=== PATIENT | female | born 2000 | race Hispanic/Latino ===

== ENCOUNTER 2021-07-25 08:59 | Outpatient (CLI) | payer OTHER, SELFPAY ==
[2021-07-25 09:48] LABS: Absolute Lymphocyte Count 2.81 X10^3/uL (0.83-4.51); Absolute Neutrophil Count 4.3 X10^3/uL (2.0-7.7); Basophil# 0.08 X10^3/uL; Eosinophil# 0.11 X10^3/uL; Eosinophils% 1.4 % (0-5); Hematocrit 40.6 % (37-47); Hemoglobin 13.4 g/dL (12.0-15.0); Lymphocyte # 2.81 X10^3/ul (0.83-4.51); Lymphocyte % 36.2 % (19-41); Mean Corpuscular Hgb 28.9 pg (27.0-32.0); Mean Corpuscular Volume 87.5 fL (81-99); Mean Platelet Vol. 10.6 fl (6.2-12.0); Monocyte# 0.45 X10^3/uL; Monocyte% 5.8 % (0-10); NRBC Flagged by Analyzer 0 % (0-5); Neutrophil % 55.3 % (47-70); Platelet Count 330 K/mm3 (150-450); RBC Distribution Width CV 13.2 % (11.6-14.6); RBC Distribution Width SD 42.3 fl (35.1-43.9); Red Blood Count 4.64 M/mm3 (4.2-5.4); White Blood Count 7.8 K/mm3 (4.4-11.0)
[2021-07-25 09:50] LABS: Erythrocyte Sedimentation Rate 10 mm/hr (0-30)
[2021-07-25 09:57] LABS: Hemoglobin A1c 5.4 % (3.8-5.6)
[2021-07-25 10:14] LABS: AST(SGOT) 13 U/L (15-37); Alanine Aminotransfer ALT/SGPT 16 U/L (13-56); Albumin, Serum 4.4 g/dL (3.2-5.0); Alkaline Phosphatase 57 U/L (45-117); Anion Gap 6 (5-15); BUN 12 mg/dL (7-18); BUN/Creat Ratio 15.1 RATIO (10-20); CRP < 2.90 mg/L (0.0-3.0); Calcium,Total 9.8 mg/dL (8.5-10.1); Chloride 107 mmol/L (98-107); Cholesterol 165 mg/dL (200); Creatinine, Serum 0.79 mg/dL (0.55-1.02); EST Glomerular Filtration Rate 95 mL/min (>60); Est Glom Filt Rate - Afr Amer 115 mL/min (>60); Globulin 4.3 g/dL (2.2-4.2); Glucose 85 mg/dL (74-106); High Density Lipoprotein 55 mg/dL; LDH 136 U/L (84-246); Potassium 4.1 mmol/L (3.5-5.1); Protein, Total 8.7 g/dL (6.4-8.2); Sodium Level 140 mmol/L (136-145); Triglycerides 70 mg/dL; Very Low Density Lipoprotein 14 mg/dL (5-40)
[2021-07-28 14:08] LABS: Anti-Centromere B Ab <0.2 AI (0.0-0.9); Anti-Chromatin <0.2 AI (0.0-0.9); Anti-Jo <0.2 AI (0.0-0.9); Anti-Scleroderma-70 AB <0.2 AI (0.0-0.9); RNP Ab 0.4 AI (0.0-0.9); SJOGREN'S Anti-SS-A test 0.2 AI (0.0-0.9); SJOGREN'S Anti-SS-B test 0.3 AI (0.0-0.9); Smith Ab <0.2 AI (0.0-0.9)
[2021-07-28 16:59] LABS: Anti-dsDNA Ab 2 IU/mL (0-9)
[2021-07-31 16:10] LABS: Immunoglobulin A 285 mg/dL (87-352); Immunoglobulin G 1225 mg/dL (586-1602); Immunoglobulin M 230 mg/dL (26-217)
[2021-07-31 17:40] LABS: Immunoglobulin E 42 IU/mL (6-495)
== END 2021-07-25 23:59 | disposition home or self-care (01) ==
LOC: LAB 09:08
PROVIDERS: PCP Nurse Practitioner Primary Care; Referring Provider Internal Medicine Gastroenterology; Visit Provider Internal Medicine Gastroenterology
DX: R19.7 Diarrhea, unspecified (principal)
CPT/HCPCS: 36415; 80053; 80061; 82784; 82785; 83036; 83615; 85025; 85652; 86140; 86225; 86235

== ENCOUNTER 2021-08-03 19:19 | Outpatient (CLI) | payer OTHER, SELFPAY ==
[2021-08-06 09:09] LABS: H. PYLORI STOOL AG Negative (Negative)
[2021-08-06 11:10] LABS: Giardia Lamblia, Stool EIA Negative (Negative)
[2021-08-08 16:45] LABS: Calprotectin, Stool 44 ug/g (0-120); Fats, Neutral Normal (.); Fats, Total Normal (.)
== END 2021-08-03 23:59 | disposition home or self-care (01) ==
LOC: LABSPEC 19:20
PROVIDERS: PCP Nurse Practitioner Primary Care; Referring Provider Internal Medicine Gastroenterology; Visit Provider Internal Medicine Gastroenterology
DX: R19.7 Diarrhea, unspecified (principal)
CPT/HCPCS: 82705; 83993; 87329; 87493; 87506

== ENCOUNTER 2021-08-08 14:59 | Outpatient (CLI) | payer OTHER, SELFPAY ==
--- NOTE | 2021-08-08 15:08 | CT_ITS ---
STUDY: CT ABDOMEN AND PELVIS WITH CONTRAST REASON FOR EXAM: Female, 21 years old. Diarrhea, family history cancer RADIATION DOSAGE (If Supplied By Facility): CTDIvol = ( 7.24 ) mGy, DLP = ( 257.92 ) mGycm TECHNIQUE: Transaxial images were obtained from the dome of the diaphragm to the symphysis pubis with oral contrast. Oral and amp; IV Readi-CAT and amp; 100mL Isovue-300 was administered. Sagittal and coronal images were reconstructed. Individualized dose optimization techniques were used for this CT. COMPARISON: None. FINDINGS: The visualized lung bases are unremarkable. The visualized portions of the heart are within normal limits. Normal liver. Normal gallbladder and extrahepatic biliary system. Normal spleen. Normal pancreas. Normal bilateral adrenal glands. Normal right kidney. Normal left kidney. The stomach is distended with contrast and food product. There is mild distention of the contrast-filled small bowel. There is prior solid stool and contrasted appearance of the proximal colon. There is a decompressed appearance of the descending colon. There is mild wall thickening of the rectum. The appendix is visualized and appears normal. Normal abdominal aorta. Normal inferior vena cava. Normal retroperitoneum. The bladder is distended. There is a IUD low lying present the T portion is angulated towards the left in the retroflexed uterus.. Most of the IUD is in the lower uterine segment. There is a 2.15 left ovarian cyst. There is a mildly thickened appearance of the periumbilical soft tissues. Normal osseous structures. CT/Abdomen/Pelvis WITH Contrast IMPRESSION: Wall thickening of the rectum suspicious for proctitis. There is no significant lymphadenopathy. The IUD is low lying in abnormal position. It is deviated towards the left and most of the IUD is migrated into the lower uterine segment. Recommend GUN NUMBERER consult for repositioning. Nonspecific overall bowel gas pattern. Small left ovarian cyst. Electronically Signed: Delisa Valdes MD at 2:48 EST ,
== END 2021-08-08 23:59 | disposition home or self-care (01) ==
LOC: CT 15:06
PROVIDERS: PCP Nurse Practitioner Primary Care; Referring Provider Internal Medicine Gastroenterology; Visit Provider Internal Medicine Gastroenterology
DX: R19.7 Diarrhea, unspecified (principal); N83.202 Unspecified ovarian cyst, left side; Z97.5 Presence of (intrauterine) contraceptive device
CPT/HCPCS: 74177; Q9967

== ENCOUNTER 2021-08-13 09:49 | Day surgery (SDC) | payer OTHER, SELFPAY ==
[2021-08-13] VITALS (7 sets, daily range): BP systolic 78–107; BP diastolic 43–73; PULSE 40–47; RESP 16–18; TEMP 36.6–37; O2SAT 99–100; BMI 20.2
--- NOTE | 2021-08-13 | EGD_PTH ---
PATIENT: SAMMY DIAZ LOC: [facility] U#:[id number] AGE/SX: 21/F ROOM: RE08/13/[address]: Dr. Sadiq Baltazar DO : 2000 BED: DIS: 08/13/2021 SPEC #: [id number] RECD: 08/13/21 14:26 STATUS: ELFEGO BARRERA #: [id number] PAUL: 08/13/21 00:[address]: Sadiq Baltazar DEPT: SURGICAL PATHOLOGY RECD BY: Nima Contreras ENTERED: 08/14/21 11:58 SP TYPE: EGD BIOPSY OT DR: Evelyn Guerra NP Tissues: A - Duodenum, NOS B - Gastric mucous membrane C - Esophageal mucous membrane Procedures: Special Stain Group II Special Stain Group I Surgery Specimen Level IV GMS Stain (control) Alcian Blue/PAS (control) HEADER OPERATION: EGD (MAC) PRE-OP DIAGNOSIS: Diarrhea TISSUE SUBMITTED: A ? Duodenum biopsy, B ? Gastric bodies biopsy, C ? Random esophagus biopsy MICROSCOPIC DIAGNOSIS A. Duodenum, biopsy: Fragments of duodenal mucosa, no pathologic diagnosis. B. Gastric body, biopsy: Minimal gastritis. See microscopic description and comment. C. Esophagus, random biopsy: Fragments of gastroesophageal mucosa with mild chronic inflammation. Intestinal metaplasia (goblet cell metaplasia) not identified. See comment. SJ:rg 08/15/2021 COMMENT B. Immunohistochemistry for Helicobacter pylori can be performed if clinically indicated. Please notify the Laboratory if it is needed. C. H & E slide (first level) shows fungal organisms (yeast and pseudohyphae), consistent with Anabel spaces. Special stain for fungi is positive for rare organisms (yeast and pseudohyphae), consistent with Anabel spaces; matched control is appropriate. Alcian blue/PAS stain with matched control is used in the evaluation of the specimen. MICROSCOPIC DESCRIPTION Slides are reviewed. B. The specimen shows fragments of gastric mucosa with chronic inflammatory cell infiltrates in the lamina propria consisting of lymphocytes and plasma cells, consistent with minimal chronic gastritis. GROSS DESCRIPTION A - Received in fixative is one container labeled with the patient's name and designated duodenum biopsy. The specimen consists of multiple irregular fragments of light merchant soft tissue that in aggregate measure 0.8 x 0.6 x 0.1 cm. The specimen is totally submitted in one cassette. B - Received in fixative is one container labeled with the patient's name and designated gastric body biopsy. The specimen consists of two irregular fragments of light merchant soft tissue that in aggregate measure 0.8 x 0.6 x 0.1 cm. The specimen is totally submitted in one cassette. C - Received in fixative is one container labeled with the patient's name and designated random esophagus. The specimen consists of multiple irregular fragments of light merchant soft tissue that in aggregate measure 1 x 0.3 x 0.1 cm. The specimen is totally submitted in one cassette. / SJ:steven 08/14/2021 TC:3 CPT: 49065 x3, 02466, 21995
[2021-08-13] MEDS: Lactated Ringers 1,000 ML 15 ML IV (10:30)
[2021-08-13 10:36] LABS: Internal QC Validated? YES +Cl - CLEAR BKGD; Pregnancy, Urine Negative Negative
--- NOTE | 2021-08-13 10:42 | PCM.HP.BLA ---
History and Physical Date of Admission: 08/13/21 21 F who presents to the office today for abdominal pain and diarrhea. Several years ago she began having diarrhea 4-6 times a day with unintentional weight loss and stomach upset and burning. Previous weight 165lbs weight today 100lbs. Currently having diarrhea 2-3 times a day with LLQ abdominal cramping. At onset she was having stomach pain with PO intake. Currently she is having decreased appetite where she will go for multiple days without desire to eat and as a result will not eat. Since onset symptoms have gotten somewhat better with fewer stools and able to eat without upset. 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 She was also intimate with an individual with C.Diff and H.Pylori. 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 Reports anxiety and depression uses coping techniques, previous doctors wanted to try medications but she did not like the way she felt on these, pursuing counseling soon. ROS Const Constitutional: No anorexia, fatigue, fever(s), weight change or sleep problems Eyes Eyes: No change in vision ENT ENT: No abnormal hearing, difficulty swallowing, mouth lesions, tongue swelling or throat swelling Resp Respiratory: No cough or shortness of breath Cardio Cardiology: No chest pain at rest, chest pain with exertion, shortness of breath or dyspnea on exertion Gastro GI: No difficulty swallowing Genitourinary-Female: No difficulty urinating or burning urination Musc Musculoskeletal: No joint pain, joint swelling, muscle weakness or decreased muscle mass Skin Skin: No hair loss in leg, yellowing of the eye, itchy eyes, rash, skin ulcer or skin swelling Neuro Neurology: No abnormal hearing, abnormal movements, confusion, unsteady gait/balance or memory loss Psych Psychiatric: No anxiety, No confusion and No memory loss Endo Endocrine: No fatigue or weight change Aller/Imm Allergy/Immunologic: No itchy eyes, throat swelling or tongue swelling Frederick/Lymp Hematologic/Lymphatic: No easy bleeding, easy bruising or enlarged lymph nodes Exam Const General: cooperative and comfortable Nutritional Appearance: average body habitus and well nourished HENMT Head: normal to inspection Ears: hearing grossly normal bilaterally Nose: external nose normal Face and sinus: normal facial exam Mouth: oral mucosae normal Throat: posterior oropharynx normal Eyes General: appearance normal, both eyes and all related structures Neck Neck: normal visual inspection Chest Chest palpation & inspection: normal inspection of the chest and normal palpation of entire chest wall Resp Effort & Inspection: normal respiratory effort Auscultation: Bilateral: Clear to Auscultation Cardio Palpation: normal PMI Rate: regular rate Rhythm: regular rhythm GI Inspection: normal to inspection Auscultation: normal bowel sounds Percussion: normal to percussion Palpation: no hepatosplenomegaly Skin General: no rashes or lesions noted Neuro General: patient alert Extrem General: normal to inspection Psych Affect: normal affect Assessment and Plan Assessment and Plan (1) Diarrhea: Status: Acute Orders: Orders: EGD Today CRP Today Erythrocyte Sed Rate Today Comprehensive Metabolic Profil Today LDH Today CBC W/Diff, Automated Today Calprotectin, Stool Today CDIFF (PCR) Today ENTERIC PATHOGEN PANEL STOOL Today Giardia Lamblia, Stool EIA Today Hemoglobin A1c Today Lipid Profile Today Abdomen/Pelvis WITH Contrast Today Plan - Dr. Babcock Friend, DO: The differential diagnosis for her diarrhea and weight loss would be infectious etiology, inflammatory bowel disease, celiac disease, protein-losing enteropathy, acute on chronic pancreatitis. We will get an extensive work-up including an upper endoscopy, CRP, ESR, CMP, LDH, hemoglobin A1c, Giardia lamblia stool testing, lipid profile family history of hypertriglyceridemia and a CT scan abdomen pelvis. She is okay with this plan. Will also do stool testing for H. pylori. Check her stool for fecal elastase. I have re-examined the patient. There are no clinical changes since date of exam.
--- NOTE | 2021-08-13 11:14 | OP.EGD_ITS ---
Patient Name: Chela Bautista Procedure Date: 08/13/2021 11:01 AM Date of : 2000 Age: 21 Procedure: Upper GI endoscopy Indications: Epigastric abdominal pain Providers: Sadiq Baltazar DO Patient Profile: This is a 21 year old female. Refer to note in patient chart for documentation of history and physical. Patient has symptoms of chronic epigastric abdominal pain and chronic nausea. Complications: No immediate complications. Procedure: Pre-Anesthesia Assessment: - Prior to the procedure, a History and Physical was performed, and patient medications and allergies were reviewed. The risks and benefits of the procedure and the sedation options and risks were discussed with the patient. All questions were answered and informed consent was obtained. Patient identification and proposed procedure were verified by the physician in the pre-procedure area. Mental Status Examination: alert and oriented. Airway Examination: normal oropharyngeal airway and neck mobility. Respiratory Examination: clear to auscultation. CV Examination: normal. Prophylactic Antibiotics: The patient does not require prophylactic antibiotics. Prior Anticoagulants: The patient has taken no previous anticoagulant or antiplatelet agents. ASA Grade Assessment: II - A patient with mild systemic disease. After reviewing the risks and benefits, the patient was deemed in satisfactory condition to undergo the procedure. The anesthesia plan was to use moderate sedation / analgesia (conscious sedation). Immediately prior to administration of medications, the patient was re-assessed for adequacy to receive sedatives. The heart rate, respiratory rate, oxygen saturations, blood pressure, adequacy of pulmonary ventilation, and response to care were monitored throughout the procedure. The physical status of the patient was re-assessed after the procedure. After obtaining informed consent, the endoscope was passed under direct vision. Throughout the procedure, the patient's blood pressure, pulse, and oxygen saturations were monitored continuously. The Endoscope was introduced through the mouth, and advanced to the second part of duodenum. The upper GI endoscopy was accomplished without difficulty. The patient tolerated the procedure well. Moderate Sedation: Moderate (conscious) sedation was administered by the endoscopy nurse and supervised by the endoscopist. The patient's oxygen saturation, heart rate, blood pressure and response to care were monitored. Total physician intraservice time was 15 minutes. Scope In: 11:02:25 AM Scope Withdrawal Time 0 hours 0 minutes 2 seconds Scope Out: 11:08:43 AM Total Procedure Duration Time 0 hours 6 minutes 18 seconds Findings: Patchy, white plaques were found in the upper third of the esophagus. Biopsies were taken with a cold forceps for histology. Verification of patient identification for the specimen was done. Estimated blood loss was minimal. Patchy mildly erythematous mucosa without bleeding was found in the gastric body. Biopsies were taken with a cold forceps for histology. Verification of patient identification for the specimen was done. Estimated blood loss was minimal. The second portion of the duodenum was normal. Biopsies were taken with a cold forceps for histology. Verification of patient identification for the specimen was done. Estimated blood loss was minimal. Impression: - Esophageal plaques were found, suspicious for candidiasis. Biopsied. - Erythematous mucosa in the gastric body. Biopsied. - Normal second portion of the duodenum. Biopsied. Recommendation: - Discharge patient to home. - Resume previous diet. - Continue present medications. - Await pathology results. - Nystatin suspension 200,000 units PO QID for 1 week. Procedure Code(s): --- Professional --- 19814, Esophagogastroduodenoscopy, flexible, transoral; with biopsy, single or multiple 45724, 59, Moderate sedation services provided by the same physician or other qualified health care transitions manager performing the diagnostic or therapeutic service that the sedation supports, requiring the presence of an independent trained observer to assist in the monitoring of the patient's level of consciousness and physiological status; initial 15 minutes of intraservice time, patient age 5 years or older CPT copyright 2017 [employer]. All rights reserved. The codes documented in this report are preliminary and upon insurance coder review may be revised to meet current compliance requirements. Sadiq Baltazar DO 08/13/2021 11:14:19 AM This report has been signed electronically. Number of Addenda: 1 Note Initiated On: 08/13/2021 11:01 AM Addendum Number: 1 Addendum Date: 03/11/2022 6:40:23 AM MAC was used as sedation for this procedure. Sadiq Baltazar DO 03/11/2022 6:40:26 AM This report has been signed electronically.
--- NOTE | 2021-08-13 11:15 | OP.CCLET_ITS ---
03/11/2022 Kylah Rodriguez Re : Upper GI endoscopy procedure for Chela Bautista Eitan Guerra This procedure was performed on Friday, August 13, 2021. My impressions and recommendations are as follows: Impressions : - Esophageal plaques were found, suspicious for candidiasis. Biopsied. - Erythematous mucosa in the gastric body. Biopsied. - Normal second portion of the duodenum. Biopsied. Recommendations : - Discharge patient to home. - Resume previous diet. - Continue present medications. - Await pathology results. - Nystatin suspension 200,000 units PO QID for 1 week. My findings are described in the full procedure note, which is enclosed. If I can be of further assistance, please feel free to contact me at . Sincerely, Sadiq Friend, 08/13/2021 11:14:19 AM This report has been signed electronically.
== END 2021-08-13 23:59 | disposition home or self-care (01) ==
LOC: EN 09:56 → AC 09:57
PROVIDERS: Anesthesiology; PCP Nurse Practitioner Primary Care; Referring Provider Nurse Practitioner Primary Care; Visit Provider Internal Medicine Gastroenterology
PROC: 0DJ08ZZ Inspection of Upper Intestinal Tract, Via Natural or Artificial Opening Endoscopic (ICD-10-PCS; CPT 43235; principal; 2021-08-13 10:40)
DX: K29.70 Gastritis, unspecified, without bleeding (principal); D68.0 Von Willebrand disease; R19.7 Diarrhea, unspecified; R10.13 Epigastric pain; K21.9 Gastro-esophageal reflux disease without esophagitis; E61.1 Iron deficiency; F32.A Depression, unspecified; F41.9 Anxiety disorder, unspecified; F17.200 Nicotine dependence, unspecified, uncomplicated; Z79.899 Other long term (current) drug therapy; Z20.822 Contact with and (suspected) exposure to COVID-19
CPT/HCPCS: 43239; 81025; 87426; 88305; 88312; 88313; J7120; J2405

== ENCOUNTER 2021-09-17 10:40 | Outpatient (CLI) | payer OTHER, SELFPAY ==
--- NOTE | 2021-09-17 10:44 | NM_ITS ---
CLINICAL: 21-year-old female, abdominal distention GASTRIC EMPTYING-SULFUR COLLOID TECHNIQUE: The patient was orally administered 1.0 mCi of Tc-sulfur colloid . Gamma camera imaging acquisitions at 1-60 minutes post radiopharmaceutical administration was performed. COMPARISON STUDIES : NM - None. CR - Not available for review at this time. CT - 08/08/2021 MR - Not available for review at this time. FINDINGS: There is normal filling and emptying of the stomach. No gastroesophageal reflux with normal passage into the small bowel. T 1/2 measures 55 minutes, within normal limits. NM/Gastric Emptying Study IMPRESSION: Normal gastric emptying nuclear medicine scan. Electronically Signed: Damon Walton MD ([place]) at 12:40 EDT ,
== END 2021-09-17 23:59 | disposition home or self-care (01) ==
LOC: NM 10:42
PROVIDERS: PCP Nurse Practitioner Primary Care; Referring Provider Internal Medicine Gastroenterology; Visit Provider Internal Medicine Gastroenterology
DX: R68.81 Early satiety (principal); R19.7 Diarrhea, unspecified
CPT/HCPCS: 78264; A9541

== ENCOUNTER 2022-01-29 05:33 | Day surgery (SDC) | payer OTHER, SELFPAY ==
--- NOTE | 2021-12-10 06:33 | PCM.HP.BLA ---
History and Physical Date of Admission: 12/10/21 CHELA DIAZ, is a 21 F who presents to the office today for For follow up visit. Chela established with this clinic 07.25.21 with diarrhea, weight loss and stomach upset. 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 Reports anxiety and depression uses coping techniques, previous doctors wanted to try medications but she did not like the way she felt on these, pursuing counseling soon. Biochemical workup 07.25.21 found elevated IgM 230 (established with hematology), globulin elevated 4.3, total protein elevated 8.7, AST decreased 13. Stool testing without abnormal results. CT abd/pel 08.08.21 distended stomach with contrast and food product, mild distention of contrast-filled small bowel. Prior solid stool and contrasted appearance of the proximal colon. Decompressed appearance of the descending colon. Mild wall thickening of rectum. IUD has migrated, recommend repositioning. Recommend gastric emptying study. EGD performed 08.13.21 finding plaques suspicious for candidiasis, gastritis and esophageal inflammation. Started on nystatin suspension. Medications currently prescribed by this clinic include Carafate TID, protonix 40mg BID, nystatin swish/swallow. Plan last visit 07.25.21: Diarrhea ? recommend EGD biochemical workup, stool testing and CT scan. Shortly prior to EGD her stools began thickening. She feels this is related to her eating better. Stools continued to thicken and she is now having one BM a day, but sometimes they feel hard to move and she will remain in the bathroom for thirty minutes. Infrequently, she will have some left sided abdominal pain. Additionally, feels that she has early satiety and will feel full on one meal for an entire day.? Her weight has remained stable since last visit. ROS Const Constitutional: No anorexia, fatigue, fever(s), weight change or sleep problems Eyes Eyes: No change in vision ENT ENT: No abnormal hearing, difficulty swallowing, mouth lesions, tongue swelling or throat swelling Resp Respiratory: No cough or shortness of breath Cardio Cardiology: No chest pain at rest, chest pain with exertion, shortness of breath or dyspnea on exertion Gastro GI: No difficulty swallowing Genitourinary-Female: No difficulty urinating or burning urination Musc Musculoskeletal: No joint pain, joint swelling, muscle weakness or decreased muscle mass Skin Skin: No hair loss in leg, yellowing of the eye, itchy eyes, rash, skin ulcer or skin swelling Neuro Neurology: No abnormal hearing, abnormal movements, confusion, unsteady gait/balance or memory loss Psych Psychiatric: No anxiety, No confusion and No memory loss Endo Endocrine: No fatigue or weight change Aller/Imm Allergy/Immunologic: No itchy eyes, throat swelling or tongue swelling Frederick/Lymp Hematologic/Lymphatic: No easy bleeding, easy bruising or enlarged lymph nodes Exam Const General: cooperative and comfortable Nutritional Appearance: average body habitus and well nourished HENMT Head: normal to inspection Ears: hearing grossly normal bilaterally Nose: external nose normal Face and sinus: normal facial exam Mouth: oral mucosae normal Throat: posterior oropharynx normal Eyes General: appearance normal, both eyes and all related structures Neck Neck: normal visual inspection Chest Chest palpation & inspection: normal inspection of the chest and normal palpation of entire chest wall Resp Effort & Inspection: normal respiratory effort Auscultation: Bilateral: Clear to Auscultation Cardio Palpation: normal PMI Rate: regular rate Rhythm: regular rhythm GI Inspection: normal to inspection Auscultation: normal bowel sounds Percussion: normal to percussion Palpation: no hepatosplenomegaly Skin General: no rashes or lesions noted Neuro General: patient alert Extrem General: normal to inspection Psych Affect: normal affect Quality Reporting Tobacco Screening ([facility]) Smoking Status: Current every day smoker Assessment and Plan Assessment and Plan (1) Early satiety: ?Status:?Acute ? ? ? Orders:?Orders: ? Gastric Emptying Study Today ?Plan - Dr. Babcock Friend, DO: Her stomach was enlarged and noted to have a lot of contents on the CT scan abdomen pelvis.? We will do a gastric emptying study to see if she has gastroparesis.? If she does we will continue the work-up and hopefully find a etiology. (2) Diarrhea: ?Status:?Acute ? ? ? Orders:?Orders: ? Gastric Emptying Study Today ?Plan - Dr. Babcock Friend, DO: Her diarrhea is a lot better and is currently turning to constipation with thin stools.? She did have a CT scan abdomen pelvis that showed rectal thickening.? It also showed displaced IUD.? I do not think she is having symptoms in her rectum, specifically constipation secondary to the displaced IUD.? She will need to undergo colonoscopy for evaluation of lower GI tract.? She was explained alternatives, risk, benefits including not withstanding bleeding, infection, sepsis, perforation, need for emergent .? She will have an ASA of 1. I have re-examined the patient. There are no clinical changes since date of exam.
--- NOTE | 2021-12-10 06:35 | SUR.PREOP ---
PER PT I WASN'T TOLD TO TAKE MEDICINE TO CLEAN ME OUT. PT IS NOT PREPPED FOR A COLONOSCOPY. DR. RODRIGUES ENDO NURSE MADE AWARE AND CHARGE NURSE HARDY MADE AWARE. WILL HOLD FOR DR. MILTON.
--- NOTE | 2021-12-10 06:40 | SUR.PREOP ---
PT WAS CANCELLED DUE TO NO PREP, PT TO FOLLOW UP WITH OFFICE FOR A RESCHEDULE.
[2021-12-10 07:14] LABS: Internal QC Validated? YES +Cl - CLEAR BKGD; Pregnancy, Urine Negative Negative
[2022-01-29] VITALS (7 sets, daily range): BP systolic 87–124; BP diastolic 58–81; PULSE 57–62; RESP 16–19; TEMP 36.3–37.3; O2SAT 100; BMI 21.0
[2022-01-29] MEDS: Lactated Ringers 1,000 ML 15 ML IV (05:40)
--- NOTE | 2022-01-29 06:30 | COLBX_PTH ---
PATIENT: SAMMY DIAZ LOC: [facility] U#:[id number] AGE/SX: 21/F ROOM: RE01/29/[address]: Dr. Sadiq Baltazar DO : 2000 BED: DIS: 01/29/2022 SPEC #: [id number] RECD: 01/29/22 10:27 STATUS: ELFEGO BARRERA #: [id number] PAUL: 01/29/22 06:[address]: Sadiq Baltazar DEPT: SURGICAL PATHOLOGY RECD BY: Yanira Amin ENTERED: 01/29/22 12:11 SP TYPE: COLON BX OTHR DR: Evelyn Guerra NP Tissues: A - Ileum, NOS B - Sigmoid colon biopsy Procedures: Surgery Specimen Level IV HEADER OPERATION: Colonoscopy (MAC) PRE-OP DIAGNOSIS: Early satiety, diarrhea TISSUE SUBMITTED: A. Terminal ileum biopsy, B. Sigmoid biopsy MICROSCOPIC DIAGNOSIS A. Terminal ileum biopsy: Fragments of small intestinal mucosa, no pathologic diagnosis. B. Sigmoid biopsy: Fragments of colonic mucosa, no pathologic diagnosis. 01/30/2022 MICROSCOPIC DESCRIPTION Slides are reviewed. GROSS DESCRIPTION A. Received is one container labeled with the patient name and designated termnal ileum. The specimen consists of multiple irregular fragments of light merchant soft tissue that in aggregate measure 1 x 0.3 x 0.1 cm. The specimen is totally submitted in one cassette. B. Received is one container labeled with the patient name and designated sigmoid biopsy. The specimen consists of two irregular fragments of light merchant soft tissue that in aggregate measure 1 x 0.3 x 0.1 cm. The specimen is totally submitted in one cassette. /NEHA:cc 01/29/22 TC:4 CPT:66434 x2
[2022-01-29 06:31] LABS: Internal QC Validated? YES +Cl - CLEAR BKGD; Pregnancy, Serum, hCG Quali. NEGATIVE Negative
--- NOTE | 2022-01-29 06:31 | HP.PCM_ITS ---
History and Physical Date of Admission: 01/29/22 CHELA DIAZ, is a 21 F who presents to the office today for For follow up visit. Chela established with this clinic 07.25.21 with diarrhea, weight loss and stomach upset. 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 Reports anxiety and depression uses coping techniques, previous doctors wanted to try medications but she did not like the way she felt on these, pursuing c ounseling soon. Biochemical workup 07.25.21 found elevated IgM 230 (established with hematology), globulin elevated 4.3, total protein elevated 8.7, AST decreased 13. Stool testing without abnormal results. CT abd/pel 08.08.21 distended stomach with contrast and food product, mild distention of contrast-filled small bowel. Prior solid stool and contrasted appearance of the proximal colon. Decompressed appearance of the descending colon. Mild wall thickening of rectum. IUD has migrated, recommend repositioning. Recommend gastric emptying study. EGD performed 08.13.21 finding plaques suspicious for candidiasis, gastritis and esophageal inflammation. Started on nystatin suspension. Medications currently prescribed by this clinic include Carafate TID, protonix 40mg BID, nystatin swish/swallow. Plan last visit 07.25.21: Diarrhea ? recommend EGD biochemical workup, stool testing and CT scan. Shortly prior to EGD her stools began thickening. She feels this is related to her eating better. Stools continued to thicken and she is now having one BM a day, but sometimes they feel hard to move and she will remain in the bathroom for thirty minutes. Infrequently, she will have some left sided abdominal pain. Additionally, feels that she has early satiety and will feel full on one meal for an entire day.? Her weight has remained stable since last visit. ROS Const Constitutional: No anorexia, fatigue, fever(s), weight change or sleep problems Eyes Eyes: No change in vision ENT ENT: No abnormal hearing, difficulty swallowing, mouth lesions, tongue swelling or throat swelling Resp Respiratory: No cough or shortness of breath Cardio Cardiology: No chest pain at rest, chest pain with exertion, shortness of breath or dyspnea on exertion Gastro GI: No difficulty swallowing Genitourinary-Female: No difficulty urinating or burning urination Musc Musculoskeletal: No joint pain, joint swelling, muscle weakness or decreased muscle mass Skin Skin: No hair loss in leg, yellowing of the eye, itchy eyes, rash, skin ulcer or skin swelling Neuro Neurology: No abnormal hearing, abnormal movements, confusion, unsteady gait/balance or memory loss Psych Psychiatric: No anxiety, No confusion and No memory loss Endo Endocrine: No fatigue or weight change Aller/Imm Allergy/Immunologic: No itchy eyes, throat swelling or tongue swelling Frederick/Lymp Hematologic/Lymphatic: No easy bleeding, easy bruising or enlarged lymph nodes Exam Const General: cooperative and comfortable Nutritional Appearance: average body habitus and well nourished HENMT Head: normal to inspection Ears: hearing grossly normal bilaterally Nose: external nose normal Face and sinus: normal facial exam Mouth: oral mucosae normal Throat: posterior oropharynx normal Eyes General: appearance normal, both eyes and all related structures Neck Neck: normal visual inspection Chest Chest palpation & inspection: normal inspection of the chest and normal palpation of entire chest wall Resp Effort & Inspection: normal respiratory effort Auscultation: Bilateral: Clear to Auscultation Cardio Palpation: normal PMI Rate: regular rate Rhythm: regular rhythm GI Inspection: normal to inspection Auscultation: normal bowel sounds Percussion: normal to percussion Palpation: no hepatosplenomegaly Skin General: no rashes or lesions noted Neuro General: patient alert Extrem General: normal to inspection Psych Affect: normal affect Quality Reporting Tobacco Screening ([facility]) Smoking Status: Current every day smoker Assessment and Plan Assessment and Plan (1) Early satiety: ?Status:?Acute ? ? ? Orders:?Orders: ?? Gastric Emptying Study? Today?Plan - Dr. Babcock Friend, DO: Her stomach was enlarged and noted to have a lot of contents on the CT scan abdomen pelvis.? We will do a gastric emptying study to see if she has gastroparesis.? If she does we will continue the work-up and hopefully find a etiology. (2) Diarrhea: ?Status:?Acute ? ? ? Orders:?Orders: ?? Gastric Emptying Study? Today?Plan - Dr. Babcock Friend, DO: Her diarrhea is a lot better and is currently turning to constipation with thin stools.? She did have a CT scan abdomen pelvis that showed rectal thickening.? It also showed displaced IUD.? I do not think she is having symptoms in her rectum, specifically constipation secondary to the displaced IUD.? She will need to undergo colonoscopy for evaluation of lower GI tract.? She was explained alternatives, risk, benefits including not withstanding bleeding, infection, sepsis, perforation, need for emergent .? She will have an ASA of 1. I have re-examined the patient. There are no clinical changes since date of exam.
--- NOTE | 2022-01-29 07:05 | OP.COLON_ITS ---
Patient Name: Chela Bautista Procedure Date: 01/29/2022 6:21 AM Date of : 2000 Age: 21 Procedure: Colonoscopy Indications: Abdominal pain in the left lower quadrant, Abdominal pain in the left upper quadrant, Abnormal CT of the GI tract Providers: Sadiq Baltazar DO Referring MD: Kylah Rodriguez Medicines: Monitored Anesthesia Care Patient Profile: This is a 21 year old female. Refer to note in patient chart for documentation of history and physical. Last Colonoscopy: none. The patient's first colonoscopy is today. Complications: No immediate complications. Procedure: Pre-Anesthesia Assessment: - Prior to the procedure, a History and Physical was performed, and patient medications and allergies were reviewed. The risks and benefits of the procedure and the sedation options and risks were discussed with the patient. All questions were answered and informed consent was obtained. Patient identification and proposed procedure were verified by the physician in the pre-procedure area. Mental Status Examination: alert and oriented. Airway Examination: normal oropharyngeal airway and neck mobility. Respiratory Examination: clear to auscultation. CV Examination: normal. Prophylactic Antibiotics: The patient does not require prophylactic antibiotics. Prior Anticoagulants: The patient has taken no previous anticoagulant or antiplatelet agents. After reviewing the risks and benefits, the patient was deemed in satisfactory condition to undergo the procedure. The anesthesia plan was to use moderate sedation / analgesia (conscious sedation). Immediately prior to administration of medications, the patient was re-assessed for adequacy to receive sedatives. The heart rate, respiratory rate, oxygen saturations, blood pressure, adequacy of pulmonary ventilation, and response to care were monitored throughout the procedure. The physical status of the patient was re-assessed after the procedure. After I obtained informed consent, the scope was passed under direct vision. Throughout the procedure, the patient's blood pressure, pulse, and oxygen saturations were monitored continuously. The pediatric colonoscope was introduced through the anus and advanced to the terminal ileum. The colonoscopy was performed without difficulty. The patient tolerated the procedure well. The quality of the bowel preparation was good. Moderate Sedation: Moderate (conscious) sedation was administered by the endoscopy nurse and supervised by the endoscopist. The following parameters were monitored: oxygen saturation, heart rate, blood pressure, and response to care and oxygen saturation, heart rate, blood pressure, respiratory rate, EKG, adequacy of pulmonary ventilation, and response to care. Scope In: 6:40:19 AM Scope Withdrawal Time 0 hours 7 minutes 42 seconds Scope Out: 6:54:45 AM Total Procedure Duration Time 0 hours 14 minutes 26 seconds Findings: The mucosa vascular pattern in the sigmoid colon was segmentally decreased. Biopsies were taken with a cold forceps for histology. Verification of patient identification for the specimen was done. Estimated blood loss was minimal. A patchy area of mucosa in the terminal ileum was granular. Biopsies were taken with a cold forceps for histology. Verification of patient identification for the specimen was done. Estimated blood loss was minimal. The exam was otherwise without abnormality on direct and retroflexion views. There was moderate spasm in the sigmoid colon and in the transverse colon. Impression: - Decreased mucosa vascular pattern in the sigmoid colon. Biopsied. - Granularity in the terminal ileum. Biopsied. - The examination was otherwise normal on direct and retroflexion views. - Moderate colonic spasm consistent with irritable bowel syndrome. Recommendation: - Discharge patient to home. - Resume previous diet. - Continue present medications. - Await pathology results. - No repeat colonoscopy due to age. Procedure Code(s): --- Professional --- 11113, Colonoscopy, flexible; with biopsy, single or multiple CPT copyright 2017 [employer]. All rights reserved. The codes documented in this report are preliminary and upon neurology specialist review may be revised to meet current compliance requirements. Sadiq Baltazar DO 01/29/2022 7:04:24 AM This report has been signed electronically. Number of Addenda: 1 Note Initiated On: 01/29/2022 6:21 AM Addendum Number: 1 Addendum Date: 03/19/2022 6:14:04 AM MAC was used as sedation for this procedure. Sadiq Baltazar DO 03/19/2022 6:14:10 AM This report has been signed electronically.
--- NOTE | 2022-01-29 07:05 | OP.CCLET_ITS ---
03/19/2022 Kylah Rodriguez Re : Colonoscopy procedure for Chela Rocher Mari This procedure was performed on January. My impressions and recommendations are as follows: Impressions : - Decreased mucosa vascular pattern in the sigmoid colon. Biopsied. - Granularity in the terminal ileum. Biopsied. - The examination was otherwise normal on direct and retroflexion views. - Moderate colonic spasm consistent with irritable bowel syndrome. Recommendations : - Discharge patient to home. - Resume previous diet. - Continue present medications. - Await pathology results. - No repeat colonoscopy due to age. My findings are described in the full procedure note, which is enclosed. If I can be of further assistance, please feel free to contact me at . Sincerely, Sadiq Baltazar, 01/29/2022 7:04:24 AM This report has been signed electronically.
== END 2022-01-29 07:38 | disposition home or self-care (01) ==
LOC: EN 05:33 → AC 05:33
PROVIDERS: Anesthesiology; PCP Nurse Practitioner Primary Care; Referring Provider Nurse Practitioner Primary Care; Visit Provider Internal Medicine Gastroenterology
PROC: 0DJD8ZZ Inspection of Lower Intestinal Tract, Via Natural or Artificial Opening Endoscopic (ICD-10-PCS; CPT 45378; principal; 2022-01-29 06:25)
DX: R10.32 Left lower quadrant pain (principal); D68.0 Von Willebrand disease; R10.12 Left upper quadrant pain; R19.7 Diarrhea, unspecified; R93.3 Abnormal findings on diagnostic imaging of other parts of digestive tract; R68.81 Early satiety; F17.290 Nicotine dependence, other tobacco product, uncomplicated
CPT/HCPCS: 45380; 81025; 84703; 88305; J7120; J2405